=== PATIENT | female | born 1990 | race Two or more races ===

== ENCOUNTER 2021-10-03 11:33 | Emergency (ER) | payer SELFPAY ==
[~2021-10-03] VITALS: Ht 157.5 cm; Wt 44.9 kg
--- NOTE | 2021-10-03 11:34 | NUR ---
TO ER BED 3, BIBRA 81 FROM HOME C/O SEIZURE X 5 EPISODES TODAY PER PT REPORT, NO TRAUMA NOTED, SEIZURE PRECAUTION IN PLACE, AAOX3, BREATHING EVEN AND NON LABORED, CONNECTED TO MONITOR
--- NOTE | 2021-10-03 11:44 | NUR ---
PHARMACY CALLED FOR MEDS
--- NOTE | 2021-10-03 11:46 | NUR ---
LAB IS AT BEDSIDE
[2021-10-03 12:00] LABS: BASOPHILS # (AUTO) 0.1 K/uL (0.0-0.2); BASOPHILS % (AUTO) 0.6 % (0.0-2.0); EOSINOPHILS % (AUTO) 0.1 % (0.0-6.0); HEMATOCRIT 41 % (33-45); HEMOGLOBIN 13.4 g/dL (11.5-14.8); LYMPHOCYTES # (AUTO) 0.6 K/uL (0.8-4.8); MEAN CORPUSCULAR HGB CONC 33 g/dl (31.0-36.0); MEAN CORPUSCULAR VOLUME 88 fL (82-100); MONOCYTES # (AUTO) 0.3 K/uL (0.1-1.30); MONOCYTES % (AUTO) 2.2 % (2.0-12.0); NEUTROPHILS # (AUTO) 12.8 K/uL (1.8-8.9); NEUTROPHILS % (AUTO) 93.1 % (43.0-81.0); PLATELET COUNT (AUTO) 321 K/uL (150-450); RED BLOOD CELL COUNT(AUTO) 4.65 MIL/uL (4.0-5.2); WHITE BLOOD COUNT (AUTO) 13.8 K/uL (4.3-11.0)
[2021-10-03] MEDS ORDERED: LEVETIRACETAM (500MG) 1,000 MG in IV NS 0.9% 100 ML IV ONE (12:00)
[2021-10-03] MEDS ORDERED: LEVETIRACETAM (500MG) 1,000 MG in IV NS 0.9% 100 ML IV SCH (12:00)
[2021-10-03 12:33] LABS: CALCIUM, SERUM 8.9 mg/dL (8.5-10.1); CREATININE 0.9 mg/dL (0.6-1.3); POTASSIUM 5.4 mmol/L (3.5-5.1)
[2021-10-03] MEDS ORDERED: CARBAMAZEPINE 200 MG TABLET ONE (12:56)
[2021-10-03] MEDS ORDERED: CARBAMAZEPINE 200 MG TABLET PO ONE (13:00)
[2021-10-03] MEDS ORDERED: LEVE500T9 PO (13:16)
[2021-10-03] MEDS ORDERED: CARB200T PO (13:16)
--- NOTE | 2021-10-03 13:40 | NUR ---
IV removed. Catheter intact and site benign. Pressure and 4x4 applied to site. No bleeding noted.
[2021-10-03 14:05] VITALS: BP 115/83
--- NOTE | 2021-10-03 14:05 | NUR ---
Patient discharged to home in stable condition. Written and verbal after care instructions given. Patient verbalizes understanding of instruction.
== END 2021-10-03 14:07 | disposition home or self-care (01) ==
LOC: ER 11:36
DX: G40.909 Epilepsy, unspecified, not intractable, without status epilepticus (principal)
CPT/HCPCS: 36415; 80048; 80156; 85025; 96365; 99284; J1953; J7030